=== PATIENT | female | born 1985 | race Caucasian/White ===

== ENCOUNTER 2017-11-14 08:50 | Outpatient (CLI) | payer OTHER, SELFPAY | END 2017-11-14 13:30 | PROVIDERS: Family Provider Specialist; PCP Specialist; Visit Provider Specialist | DX: Z34.03 Encounter for supervision of normal first pregnancy, third trimester (principal); Z3A.39 39 weeks gestation of pregnancy | CPT/HCPCS: 59025; G0378 ==